=== PATIENT | male | born 1960 | race Caucasian/White ===

== ENCOUNTER 2018-10-22 08:42 | Day surgery (SDC) | payer OTHER, SELFPAY ==
[2018-10-22 08:59] VITALS: BMI 31.0
[2018-10-22 09:13] VITALS: BP 114/79; PULSE 76; RESP 15; TEMP 36.6; O2SAT 98
[2018-10-22] MEDS: SODIUM CHLORIDE 0.9% 1,000 ML 200 ML IV (09:17)
--- NOTE | 2018-10-22 09:29 | SUR.PREOP ---
Pt ready for Endo Suite at this time. Admit VS\Nursing data base has been completed and Pt ready for Sedation RN/MD Assessment. Consent needs to be signed by MD as well as an H/P will need to be completed. Pt has a pacemaker and will notify MD when he is at the bedside. Discharge instructions reviewed and Pt indicates understanding. NS running at O at this time.
--- NOTE | 2018-10-22 10:27 | PM.HP.1 ---
History of Present Illness Date Patient Seen: 10/22/18 Time Patient Seen: 10:27 Chief complaint: SCREENING COLONOSCOPY 18569 Narrative: Patient is a gentleman here for screening colonoscopy. This is his 1st exam. He has no family history of colon cancer. Patient History Medical History Atrial fibrillation (Chronic) Pacemaker (Chronic) Family & Social History Social History: household members spouse Meds Home Medications Medication Instructions Recorded Confirmed Type aspirin [Aspirin Low Dose] 81 mg PO DAILY 10/22/18 10/22/18 History digoxin 0.125 mg PO DAILY 10/22/18 10/22/18 History metoprolol tartrate 100 mg PO BID 10/22/18 10/22/18 History simvastatin 5 mg PO QPM 10/22/18 10/22/18 History Review of Systems Review of Systems All systems reviewed & are unremarkable except as noted in HPI and below Exam Vital Signs (past 8 hours): - 10/22/18 09:13 Temperature 97.8 F Pulse Rate 76 Respiratory Rate 15 Blood Pressure 114/79 Pulse Oximetry 98 Oxygen Delivery Method Room Air Narrative Exam Narrative: Co Operative no apparent distress. Lungs are clear to auscultation no rales or rhonchi. Heart distant tones irregularly irregular. No murmur appreciated. Abdomen is protuberant soft nontender without mass. No obvious hernias. Alert and oriented x3. Assessment & Plan Plan: Assessment/Plan Narrative: Patient for screening colonoscopy. I have discussed the procedure and the rationale with the patient including risks of bleeding, perforation which would necessitate a major operation, failure to find remove all lesions and the potential to tattoo. They appeared to understand and wished to proceed.
--- NOTE | 2018-10-22 10:30 | PM.PREOP ---
Pre-operative Note Interval Note Pre-op Check: Yes History & Physical exam performed today by Physician Changes: No ASA Class (for procedural sedation): II
[2018-10-22] MEDS: MIDAZOLAM 5 MG/5 ML VIAL IV (10:51)
[2018-10-22] MEDS: fentaNYL 250 MCG/5 ML INJ IV (10:52)
--- NOTE | 2018-10-22 11:01 | PM.OP.ENDO ---
Operative Date/Time/Diagnoses Date of procedure: 10/22/18 Time of procedure: 11:01 Pre-op diagnosis: Screening examination. This is his 1st colonoscopy. Post-op diagnosis: same (Diverticulosis) Procedure & Clinicians Study performed: Colonoscopy Same procedure as scheduled: Yes Indications: Screening Surgeon: Emigdio Doherty Procedure Notes SCOAP/Timeout: Performed Procedure in detail: The patient was placed in the left lateral decubitus position and underwent IV sedation directed by the surgeon consisting of fentanyl and Versed. Digital exam was remarkable for an increased sphincter tone. The back half of his prostate was normal. I could not feel beyond that. The scope was inserted and advanced through the rectum into the sigmoid, descending, transverse, and ascending colon. The patient was noted to have sigmoid diverticulosis. No other lesions were seen. The cecum was reached identified by the ileocecal valve and the appendiceal opening. The scope was gradually brought out. No Polyps were found. The scope ultimately was retroflexed in the rectum. The appearance was normal. The scope was removed and the patient tolerated the procedure well. Prep was very good. Scope withdrawal time: Seven and 0.5 min Sedation minutes: 20 Recommendations: Colonscopy in 10 years Follow up: as needed Disposition: same day surgery
[2018-10-22 11:13] VITALS: BP 95/72; PULSE 84; RESP 15; TEMP 36.8; O2SAT 95
== END 2018-10-22 11:23 | disposition home or self-care (01) ==
PROVIDERS: PCP Internal Medicine; Visit Provider Specialist
PROC: 0DJD8ZZ Inspection of Lower Intestinal Tract, Via Natural or Artificial Opening Endoscopic (ICD-10-PCS; CPT 45378; principal; 2018-10-22 09:45)
DX: Z12.11 Encounter for screening for malignant neoplasm of colon (principal); K57.30 Diverticulosis of large intestine without perforation or abscess without bleeding; I48.91 Unspecified atrial fibrillation; Z95.0 Presence of cardiac pacemaker
CPT/HCPCS: 45378; 99152; J2250; J3010

== ENCOUNTER 2020-10-06 04:29 | Emergency (ER) | payer OTHER, SELFPAY ==
[2020-10-06 04:41] VITALS: BP 125/91; PULSE 103; RESP 17; TEMP 37.4; O2SAT 95; BMI 32.6
--- NOTE | 2020-10-06 04:41 | ED_ITS ---
HPI - General Adult General Chief complaint: Shortness of Breath/Dyspnea Stated complaint: Experiencing covid symptoms since sunday Time Seen by Provider: 10/06/20 04:30 Source: patient Mode of arrival: Ambulatory Limitations: no limitations History of Present Illness HPI narrative: Patient is a 59-year-old male. History of atrial fibrillation. Has a pacemaker in place secondary to this also has history of heart failure is not on anticoagulation here for evaluation of 2 days what he thinks are COVID-19 symptoms. He denies any fever. He states that he is having some upper abdominal discomfort although he states that is not a pain. He states that he has been coughing up quite a bit of phlegm especially at night when he is lying down. No lower extremity swelling. Having some nausea but no vomiting. No change in his medications recently. Related Data Home Medications Medication Instructions Recorded Confirmed aspirin [Aspirin Low Dose] 81 mg PO DAILY 10/22/18 07/31/19 digoxin 0.125 mg PO DAILY 10/22/18 07/31/19 metoprolol tartrate 100 mg PO BID 10/22/18 07/31/19 Respironics Dreamstation CPAP #1 ea 07/31/19 07/31/19 simvastatin 5 mg tablet 10 mg PO BID tab 07/31/19 07/31/19 Allergies Allergy/AdvReac Type Severity Reaction Status Date / Time No Known Drug Allergies Allergy Unverified 07/31/19 16:09 Review of Systems Constitutional Constitutional: Denies fever(s) Cardiovascular Cardiovascular: Denies chest pain, Denies rapid heart rate and Denies ligh theadedness Comments: Some chest discomfort Respiratory Respiratory: Reports cough Gastrointestinal Gastrointestinal: Denies abdominal pain, Reports nausea and Denies vomiting Genitourinary Genitourinary: Denies dysuria Genitourinary: Denies dysuria Musculoskeletal Comments: No edema Integumentary/Breasts Skin/Breast: Denies lesions and Denies rash Neurologic Neurologic: Denies behavioral changes Psychiatric Psychiatric: Denies behavioral changes Hematologic/Lymphatic Hematologic/Lymphatic: Denies easy bleeding and Denies easy bruising Patient History Medical History (Updated 10/06/20 @ 06:05 by Saul Todd DO) Atrial fibrillation Congestive heart failure (CHF) Obstructive sleep apnea Pacemaker Sick sinus syndrome Social History household members: spouse Smoking Status: Never smoker Smoking Status: Never smoker Exam Initial Vital Signs Initial Vital Signs: Vital Signs Temperature 99.3 F 10/06/20 04:41 Pulse Rate 103 H 10/06/20 04:41 Respiratory Rate 17 10/06/20 04:41 Blood Pressure 125/91 H 10/06/20 04:41 Pulse Oximetry 95 10/06/20 04:41 Const General: cooperative, healthy appearing and comfortable Limitations: mental status not altered HENMT Head: normal to inspection and normocephalic Resp Effort & Inspection: normal respiratory effort Auscultation: clear to auscultation bilaterally Cardio Rate: regular rate Rhythm: regular rhythm Skin Lesions: no lesions Rashes: no rashes Extrem General: No edema Psych Appearance: grossly normal and well kempt Scores GCS [place] coma scale eye opening: Spontaneous [place] coma scale verbal response: Orientated [place] coma scale motor response: Obey commands [place] coma scale total score: 15 Course Orders Ordered: ED Orders 10/06/20 04:35 COVID19 Stat 10/06/20 04:55 XR chest 1V Stat 10/06/20 05:00 Complete Blood Count AUTO DIFF Stat Comprehensive Metabolic Panel Stat 10/06/20 05:01 Lipase Stat NT-proBNP (BNP-Adult 18+) Stat Troponin & CK Cardiac Panel Stat EKG-12 Lead Stat Vital Signs Vital signs: Vital Signs - 8 hr 10/06/20 04:41 10/06/20 05:15 10/06/20 05:30 Temperature 99.3 F Pulse Rate 103 H 82 94 H Respiratory Rate 17 15 Blood Pressure 125/91 H 139/89 Pulse Oximetry 95 97 100 Medical Decision Making Medical Records Medical records reviewed: Yes I reviewed the patient's medical records. Lab Data Lab results reviewed: Yes I reviewed the patient's lab results. Result diagrams: 10/06/20 05:10 10/06/20 05:10 Labs: Lab Results 10/06/20 10/06/20 10/06/20 Range/Units 04:35 05:10 05:10 WBC 9.1 (4.5-11.0) X10^3/uL RBC 5.36 (4.5-5.9) X10^6/uL Hgb 17.0 (13.5-17.5) g/dL Hct 48.7 (41-53) % MCV 90.8 (80-100) fL MCH 31.7 (26-34) PG MCHC 34.9 (30-36) % RDW 13.3 (11.6-14.8) % Plt Count 246 (150-400) X10^3/uL Neut % (Auto) 73.5 (50-75) % Lymph % (Auto) 15.9 L (25-40) % [place] % (Auto) 9.6 (3-14) % Eos % (Auto) 0.5 L (2-4) % Baso % (Auto) 0.5 (0-2) % Neut # (Auto) 6700 (6829-5732) /uL Lymph # (Auto) 1400 (2897-0236) /uL [place] # (Auto) 900 (0-900) /uL Eos # (Auto) 0 (0-450) /uL Baso # (Auto) 0 (0-100) /uL Sodium 137 (137-145) mmol/L Potassium 4.0 (3.4-5.1) mmol/L Chloride 104 (98-107) mmol/L Carbon Dioxide 29 (22-32) mmol/L BUN 15 (9-20) mg/dL Creatinine 0.78 (0.66-1.25) mg/dL Estimated GFR > 60.0 (>60) mL/min BUN/Creatinine Ratio 19.2 (6-22) Glucose 128 H (70-100) mg/dL Calcium 9.4 (8.4-10.2) mg/dL Total Bilirubin 1.1 (0.2-1.3) mg/dL AST 32 (17-59) IU/L ALT 32 (<50) IU/L Alkaline Phosphatase 74 (38-126) U/L Total Creatine Kinase (55-170) U/L CK-MB (CK-2) (<2.37) ng/mL CK-MB (CK-2) Rel Index (1.5-5.0) % Troponin I (0.01-0.034) ng/mL NT-Pro-B Natriuret Pep (<125) pg/mL Total Protein 7.4 (6.3-8.2) g/dL Albumin 4.4 (3.5-5.0) g/dL Globulin 3.0 (1.7-4.1) g/dL Albumin/Globulin Ratio 1.5 (1.0-2.8) Lipase (23-300) U/L COVID-19 PCR Negative (Negative) 10/06/20 Range/Units 05:10 WBC (4.5-11.0) X10^3/uL RBC (4.5-5.9) X10^6/uL Hgb (13.5-17.5) g/dL Hct (41-53) % MCV (80-100) fL MCH (26-34) PG MCHC (30-36) % RDW (11.6-14.8) % Plt Count (150-400) X10^3/uL Neut % (Auto) (50-75) % Lymph % (Auto) (25-40) % [place] % (Auto) (3-14) % Eos % (Auto) (2-4) % Baso % (Auto) (0-2) % Neut # (Auto) (3884-1797) /uL Lymph # (Auto) (4512-0414) /uL [place] # (Auto) (0-900) /uL Eos # (Auto) (0-450) /uL Baso # (Auto) (0-100) /uL Sodium (137-145) mmol/L Potassium (3.4-5.1) mmol/L Chloride (98-107) mmol/L Carbon Dioxide (22-32) mmol/L BUN (9-20) mg/dL Creatinine (0.66-1.25) mg/dL Estimated GFR (>60) mL/min BUN/Creatinine Ratio (6-22) Glucose (70-100) mg/dL Calcium (8.4-10.2) mg/dL Total Bilirubin (0.2-1.3) mg/dL AST (17-59) IU/L ALT (<50) IU/L Alkaline Phosphatase (38-126) U/L Total Creatine Kinase 113 (55-170) U/L CK-MB (CK-2) 0.80 (<2.37) ng/mL CK-MB (CK-2) Rel Index 0.7 L (1.5-5.0) % Troponin I < 0.012 (0.01-0.034) ng/mL NT-Pro-B Natriuret Pep 350 H (<125) pg/mL Total Protein (6.3-8.2) g/dL Albumin (3.5-5.0) g/dL Globulin (1.7-4.1) g/dL Albumin/Globulin Ratio (1.0-2.8) Lipase 153 (23-300) U/L COVID-19 PCR (Negative) Imaging Data Chest x-ray: Radiologist's Impression: No acute cardiopulmonary abnormality is identified. ECG Data Attestation: I personally reviewed and interpreted this ECG as follows: Prior ECG tracings: not available for review Interpretation: Atrial fibrillation Ventricular rate 99 Left axis deviation MDM Narrative Medical decision making narrative: Nonischemic changes on the EKG. Troponin is negative. BNP is negative. Chest x-ray is negative. Low suspicion for ACS. Clinically not in heart failure. COVID is negative. No indication for antibiotics. I suspect GI was seen given his history and physical. Will have him start on an H2 roxanna as needed. Having contact his primary provider. He was given return precautions. Expressed understanding and agreement. Discharge Plan Departure Patient Disposition: Home Clinical Impression: Atypical chest pain Instructions: DI for Atypical Chest Pain Activity Restrictions/Additional Instructions: Recommend that you consider taking a reflux medicine. You can purchase Pepcid/famotidine [id number]. You can take this as directed. Continue the rest your medications as directed. Contact your primary provider for follow-up. Return to the emergency department for any new or worsening symptoms Prescriptions: No Action metoprolol tartrate 100 mg Tablet 100 mg PO BID RF: 0 aspirin [Aspirin Low Dose] 81 mg Tablet,Delayed Release (Dr/Ec) 81 mg PO DAILY RF: 0 digoxin 125 mcg Tablet 0.125 mg PO DAILY RF: 0 simvastatin 5 mg tablet 10 mg PO BID RF: 0 (DME) Respironics Dreamstation CPAP Qty: 1 RF: 0 Referrals: Juan Antonio Collins MD [Primary Care Provider] -
[2020-10-06 04:54] LABS: COVID19 -Nasal RAPID Negative (Negative)
--- NOTE | 2020-10-06 04:55 | DI.RAD.S_ITS ---
PROCEDURE: XR CHEST 1V INDICATIONS: Shortness of breath TECHNIQUE: One view of the chest was acquired. COMPARISON: None. FINDINGS: Surgical changes and devices: Pacemaking device with single lead normal. Lungs and pleura: Lungs are clear considering reduced inspiratory volume. No pleural effusions or pneumothorax. Mediastinum: Mediastinal contours appear normal. Heart size is normal. Bones and chest wall: No suspicious bony lesions. Overlying soft tissues appear unremarkable. IMPRESSION: Lordotic positioning, reduced inspiratory volume. Pacemaking device appears normal. The heart size appears prominent but this may simply represent an artifact of lordotic positioning. Definite cardiomegaly is not present given this factor. Follow-up two view chest may be warranted for more accurate assessment. Dictated by: Marko Tai M.D. on 10/06/2020 at 9:04 Approved by: Marko Tai M.D. on 10/06/2020 at 9:05
[2020-10-06 05:15] VITALS: PULSE 82; O2SAT 97
[2020-10-06 05:17] LABS: Monocytes Absolute Auto 900 /uL (0-900)
[2020-10-06 05:19] LABS: Add Manual Diff / Slide Review NO; Basophils Absolute Auto 0 /uL (0-100); Basophils Percent Auto 0.5 % (0-2); Eosinophils Absolute Auto 0 /uL (0-450); Eosinophils Percent Auto 0.5 % (2-4); Hematocrit 48.7 % (41-53); Lymphocytes Absolute Auto 1400 /uL (1100-4500); Lymphocytes Percent Auto 15.9 % (25-40); Mean Corpuscular HGB Conc 34.9 % (30-36); Mean Corpuscular Hemoglobin 31.7 PG (26-34); Mean Corpuscular Volume 90.8 fL (80-100); Monocytes Percent Auto 9.6 % (3-14); Neutrophils Absolute Auto 6700 /uL (1500-7000); Neutrophils Percent Auto 73.5 % (50-75); Platelet Count 246 X10^3/uL (150-400); Red Blood Cell Count 5.36 X10^6/uL (4.5-5.9); Red Cell Distribution Width 13.3 % (11.6-14.8); White Blood Cell Count 9.1 X10^3/uL (4.5-11.0)
[2020-10-06 05:28] LABS: Creatine Kinase 113 U/L (55-170); Lipase 153 U/L (23-300)
[2020-10-06 05:30] VITALS: BP 139/89; PULSE 94; RESP 15; O2SAT 100
[2020-10-06 05:30] LABS: Alanine Aminotransferase 32 IU/L (<50); Albumin 4.4 g/dL (3.5-5.0); Albumin Globulin Ratio 1.5 (1.0-2.8); Alkaline Phosphatase 74 U/L (38-126); Aspartate Aminotransferase 32 IU/L (17-59); BUN Creatinine Ratio 19.2 (6-22); Bilirubin Total 1.1 mg/dL (0.2-1.3); Blood Urea Nitrogen 15 mg/dL (9-20); Calcium 9.4 mg/dL (8.4-10.2); Carbon Dioxide 29 mmol/L (22-32); Chloride 104 mmol/L (98-107); Estimated Glomerular Filt Rate > 60.0 mL/min (>60); Glucose 128 mg/dL (70-100); HEMOLYSIS 25 (0-50); Sodium 137 mmol/L (137-145); Total Protein 7.4 g/dL (6.3-8.2)
[2020-10-06 05:42] LABS: NT-proBNP (BNP-Adult 18+) 350 pg/mL (<125); Troponin I < 0.012 ng/mL (0.01-0.034)
[2020-10-06 05:44] LABS: CKMB % Relative Index 0.7 % (1.5-5.0)
[2020-10-06 06:00] VITALS: PULSE 98; RESP 19; O2SAT 98
[2020-10-06 06:01] VITALS: BP 130/92; PULSE 103; RESP 22; O2SAT 98
== END 2020-10-06 06:13 | disposition home or self-care (01) ==
PROVIDERS: Emergency Provider Emergency Medicine; PCP Internal Medicine
DX: R07.89 Other chest pain (principal); R11.0 Nausea; R05 Cough; I48.91 Unspecified atrial fibrillation; I50.9 Heart failure, unspecified; Z95.0 Presence of cardiac pacemaker
CPT/HCPCS: 36415; 71045; 80053; 82550; 82553; 83690; 83880; 84484; 85025; 87635; 93005; 99281; 99284